=== PATIENT | male | born 1995 | race Two or more races ===

== ENCOUNTER 2022-03-20 21:19 | Emergency (ER) | payer SELFPAY ==
[2022-03-20] MEDS ORDERED: Acetaminophen/oxyCODONE 325-5 MG Tab PO ONE (23:17)
[2022-03-20] MEDS ORDERED: Lidocaine 1% 5 ML VIAL INJECT ONE (23:59)
[2022-03-21] MEDS ORDERED: Ibuprofen 600 MG Tab PO ONE (00:58)
[2022-03-21] MEDS ORDERED: Ondansetron 4 MG Tab.DIS PO ONE (00:58)
[2022-03-21] MEDS ORDERED: Cephalexin 500 MG Cap PO ONE (00:58)
[2022-03-21] MEDS ORDERED: Bacitracin/Neomycin/Polymyxin B Oint 28.4 GM Tube TOP ONE (01:58)
== END 2022-03-21 02:07 | disposition home or self-care (01) ==
LOC: MW.ED 21:19
DX: S01.511A Laceration without foreign body of lip, initial encounter (principal); S01.311A Laceration without foreign body of right ear, initial encounter; S00.532A Contusion of oral cavity, initial encounter; Y09 Assault by unspecified means
CPT/HCPCS: 12015; 70450; 70486; 72125; 99283; A9270; 99285